=== PATIENT | male | born 2000 | race Caucasian/White ===

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

== ENCOUNTER 2023-02-11 13:26 | Outpatient (CLI) | payer MEDICAID | END 2023-02-11 23:59 | disposition home or self-care (01) | LOC: RAD 13:26 | PROVIDERS: ATTEND Nurse Practitioner Psychiatric/Mental Health | DX: Z79.899 Other long term (current) drug therapy (principal) | CPT/HCPCS: 93005 ==

== ENCOUNTER 2024-07-27 23:30 | Emergency (ER) | payer MEDICAID ==
[~2024-07-27] VITALS: Ht 182.9 cm; Wt 128.0 kg
[2024-07-27 23:33] VITALS: TEMP 98.3
[2024-07-27] MEDS ORDERED: OLAN1TAB5 PO (23:55)
[2024-07-27] MEDS ORDERED: ATOM80CA3 PO (23:55)
[2024-07-27] MEDS ORDERED: DIVA-52 (23:55)
[2024-07-27] MEDS ORDERED: ERGO500093 PO (23:55)
--- NOTE | 2024-07-28 01:44 | Physician Documentation ---
History of Present Illness ~ Chief Complaint: Diarrhea Stated Complaint: DIARRHEA Time Seen by MD: 01:42 OK to notify your PCP?: Yes Source: patient, family, RN/MD, RN notes reviewed, old records Mode of Arrival: POV Exam Limitations: no limitations HPI 24-year-old male, with unspecified psychiatric history on medications, brought by his mother due to concerns of diarrhea that began around 1730. He has had three episodes in the last 2 hours. Patient is concerned that he ate too much sugar, which sometimes upsets his stomach. He also has some mild generalized abdominal pain but denies any nausea or fever. Mother reports she mostly came in because she was concerned about giving him any medications due to possible interactions with his psychiatric medications. Medication Reconciliation Allergies: Coded Allergies: No Known Allergies (Unverified , 07/18/18) Scheduled Atomoxetine HCl (Atomoxetine HCl), 1 CAP PO HS, (Reported) Ergocalciferol (Vitamin D2) (Vitamin D2), 1 CAP PO Q7D, (Reported) Olanzapine/Samidorphan Malate (Lybalvi 15-10 mg Tablet), 1 TAB PO BID, (Reported) Miscellaneous Medications Divalproex Sodium (Divalproex Sodium), (Reported) Past Medical History Past Medical History: Extremity Fracture, *PSYCH* Past Surgical History: noncontributory Alcohol Use: None Drug Use: none Lives with: Mother Lives In: Home Review of Systems All Other Systems at this time: Reviewed and Negative ROS As stated above in the HPI, otherwise all systems are reviewed and negative. Physical Exam Vital Signs: RN Vital Signs have been reviewed: Yes, Temperature: 98.3, Heart Rate: 112, Respiratory Rate: 16, BP: 134/96, Pulse Oximetry: 97, Weight: 128.000 Oxygen Flow Rate: 0 Pulse Oximetry Reflects: adequate oxygenation Physical Exam General: The patient is well developed, well nourished, nontoxic appearing and is in no acute distress. Skin: [place], warm and dry with no rashes. HEENT: Head was normocephalic and atraumatic. Chest: Clear to auscultation bilaterally without wheezes, rales or rhonchi. No accessory muscle use. No dullness to percussion. Heart: Rate regular and rhythmic. S1, S2. No murmurs. Palpation of the chest wall was normal. No rubs or thrills. Abdomen: Soft, nontender and nondistended. Positive bowel sounds. No guarding or rebound. Extremities: No cyanosis, clubbing or edema. The patient moves all extremities. Pulses were equal and symmetric. Neurologic: Motor and sensation grossly intact. Cranial nerves II-XII grossly intact. A & O x4. Psychologic: Odd affect. No agitation. Progress Results/Orders Results/Orders Vital Signs 07/27/24 07/28/24 23:33 00:08 Temp 98.3 Pulse 108 112 Resp 18 16 B/P (MAP) 136/95 134/96 (109) Pulse Ox 97 97 O2 Flow Rate 0 Departure Time of Disposition: 01:49 Disposition: 01 HOME / SELF CARE / HOMELESS Impression: Primary Impression: Diarrhea Qualified Codes: R19.7 - Diarrhea, unspecified Condition: Stable Discharge Instructions: Diarrhea, Adult, [id number] Additional Instructions: May give [id number] Imodium for diarrhea. Drink lots of fluids. Return to the ER for fever, worsening abdominal pain, persistent vomiting, or other concerns. Education Educated: Patient Educated regarding: diagnosis, treatment, need for follow up Signature Scribe Signature: Scribed for Emergency,Department by Antonio Dickens . 07/28/24 01:47 Attestation: The note accurately reflects work and decisions made by me.Ajit Hough MD 07/28/24 01:44 AJIT HOUGH MD July 28, 2024 01:44 ANTONIO PORTER July 28, 2024 01:50
[2024-07-28] MEDS: diphenoxylate/atropine tablet (Lomotil) PO ONE ×4 (02:21→02:22)
[2024-07-28 02:29] VITALS: BP 134/96; PULSE 76; RESP 16; O2SAT 95
== END 2024-07-28 02:32 | disposition home or self-care (01) ==
LOC: ER 23:31
DX: R19.7 Diarrhea, unspecified (principal); Z79.899 Other long term (current) drug therapy
CPT/HCPCS: 99283

== ENCOUNTER 2024-09-14 22:32 | Emergency (ER) | payer MEDICAID ==
[~2024-09-14] VITALS: Ht 182.9 cm; Wt 127.4 kg
[~2024-09-14 22:32] MED LIST: ATOM80CA3 PO; DIVA-52; ERGO500093 PO; OLAN1TAB5 PO
[2024-09-14 22:40] VITALS: BP 147/99; PULSE 99; RESP 17; TEMP 97.6; O2SAT 96
[2024-09-14 23:33] LABS: BASOPHILS % (AUTO) 0.5 % (0-1); EOSINOPHILS # (AUTO) 0.2 X10'3 (0-0.9); EOSINOPHILS % (AUTO) 2.5 % (0-6); HEMATOCRIT 41.6 % (42.0-52.0); HEMOGLOBIN 14.6 g/dl (14.0-17.9); LYMPHOCYTES # (AUTO) 1.1 X10'3 (1.1-4.8); MEAN CORPUSCULAR HEMOGLOBIN 30.9 PG (27.0-31.0); MEAN CORPUSCULAR HGB CONC 35.2 g/dL (33.0-36.5); MEAN CORPUSCULAR VOLUME 87.7 FL (78-98); MEAN PLATELET VOLUME 7.9 FL (7.4-10.4); MONOCYTES # (AUTO) 0.5 X10'3 (0-0.9); MONOCYTES % (AUTO) 7.9 % (2-12); NEUTROPHILS # (AUTO) 4.7 X10'3 (1.8-7.7); NEUTROPHILS % (AUTO) 72.1 % (42-75); PLATELET COUNT 156 X10'3 (140-440); RED BLOOD COUNT 4.75 X10'6 (4.70-6.10); RED CELL DISTRIBUTION WIDTH 12.6 % (11.5-14.5); WHITE BLOOD COUNT 6.6 X10'3 (4.5-11.0)
[2024-09-14 23:35] LABS: BILIRUBIN,URINE NEGATIVE (Neg); CLARITY,URINE CLEAR (Clear); COLOR,URINE YELLOW (Yellow); GLUCOSE, URINE 100 mg/dl (Neg); KETONES,URINE NEGATIVE (Neg); LEUKOCYTE ESTERASE ,URINE NEGATIVE (Neg); NITRITES, URINE NEGATIVE (Neg); OCCULT BLOOD,URINE NEGATIVE (Neg); PROTEIN,URINE NEGATIVE (Neg)
[2024-09-14 23:36] LABS: UA COLLECTION TYPE NON-SPECIFIED
[2024-09-14 23:48] LABS: ALANINE AMINOTRANSFERASE 23 U/L (12-78); ALBUMIN 3.5 G/DL (3.4-5.0); ALBUMIN/GLOBULIN RATIO 0.9 (1.1-1.5); ALKALINE PHOSPHATASE 82 IU/L (46-116); ANION GAP 10 (8-16); ASPARTATE AMINO TRANSFERASE 13 U/L (10-37); BILIRUBIN,TOTAL 0.4 MG/DL (0.1-1.0); BLOOD UREA NITROGEN 12 MG/DL (7-18); BUN/CREATININE RATIO 12.9 (10.0-20.0); CALCIUM 9.3 MG/DL (8.5-10.1); CHLORIDE 105 MMOL/L (99-107); CREATININE 0.93 MG/DL (0.60-1.10); GLUCOSE 117 MG/DL (70-104); LIPASE 19 U/L (16-77); POTASSIUM 4.3 MMOL/L (3.5-5.1); SODIUM 142 MMOL/L (135-145); TOTAL CARBON DIOXIDE 27.5 MMOL/L (24-32); TOTAL PROTEIN 7.5 G/DL (6.4-8.2); eCRCL 136 ML/MIN; eGFR > 90 ML/MIN
== END 2024-09-15 01:16 | disposition left against medical advice (07) ==
LOC: ER 22:32
DX: R19.7 Diarrhea, unspecified (principal); Z53.21 Procedure and treatment not carried out due to patient leaving prior to being seen by health care provider
CPT/HCPCS: 36415; 80053; 81003; 83690; 85025